=== PATIENT | female | born 2000 | race Caucasian/White ===

== ENCOUNTER 2025-01-12 03:25 | Outpatient (CLI) | payer MEDICAID, SELFPAY ==
[2025-01-12 12:02] LABS: Abs Immature Grans 0.03 10^3/uL (0.0-0.06); HCT 43.9 % (36.0-46.0); HGB 15.2 g/dL (11.2-15.7); Immature Grans % 0.3 %; MCH 30.8 pg (27.0-33.0); MCHC 34.6 % (32.0-36.0); MCV 89 fL (80-95); Platelet Count 183 10^3/uL (130-400); RBC 4.93 10^6/uL (3.93-5.22); RDW 13.0 % (11.7-14.6); RDW-SD 41.9 fL; WBC 8.71 10^3/uL (4.4-10.8)
[2025-01-12 12:21] LABS: Hemoglobin A1C 4.9 % (<5.7)
[2025-01-12 12:49] LABS: ALT 24 U/L (14-59); AST 16 U/L (15-37); Albumin 3.5 g/dL (3.4-5.0); Alkaline Phosphatase 78 U/L (46-116); Anion Gap 11.2 mmol/L (3-11); BUN 5 mg/dL (7-18); Bilirubin, Total 0.6 mg/dL (0.2-1.0); CO2 23.8 mmol/L (21.0-32.0); Calcium 9.0 mg/dL (8.5-10.1); Chloride 105 mmol/L (98-107); Estimated GFR 123.01 (mL/min/1.73m2); Glucose 84 mg/dL (74-106); Potassium 3.9 mmol/L (3.5-5.1); Sodium 140 mmol/L (136-145); TSH (W/Ref FT4) 1.58 uIU/mL (0.36-3.74); Total Protein 7.2 g/dL (6.4-8.2)
[2025-01-13 09:27] LABS: HIV-1/2 Ag & Ab Screen Negative (Negative)
[2025-01-15 11:08] LABS: Rubella IgG Ab (UVM) Positive (See Note)
[2025-01-15 11:38] LABS: Hepatitis C Ab w Rflx HCV PCR Negative (Negative)
[2025-01-15 15:45] LABS: Syphilis IgG w/Reflex Nonreactive (Nonreactive)
== END 2025-01-12 03:26 | disposition home or self-care (01) ==
PROVIDERS: Visit Provider Advanced Practice Midwife
DX: Z34.91 Encounter for supervision of normal pregnancy, unspecified, first trimester (principal)
CPT/HCPCS: 36415; 80053; 86787; 86803; 86850; 86900; 86901; 87340; 87389; 83036; 84443; 85025; 86762; 86780

== ENCOUNTER 2025-01-12 10:25 | Outpatient (REF) | payer MEDICAID, SELFPAY ==
[2025-01-12 12:12] LABS: Cannabinoids THC Positive (Negative); METHADONE URINE SCREEN Negative (Negative)
[2025-01-14 16:01] LABS: Fentanyl Scr w/Rfx Confirm Negative ng/mL (<1)
[2025-01-15 11:53] LABS: Chlamydia Result Negative (Negative); GC Result Negative (Negative)
== END 2025-01-12 10:26 | disposition home or self-care (01) ==
LOC: LBN 10:25
PROVIDERS: Visit Provider Advanced Practice Midwife
DX: Z34.91 Encounter for supervision of normal pregnancy, unspecified, first trimester (principal)
CPT/HCPCS: 80307; 80348; 87491; 87591; 87086

== ENCOUNTER 2025-01-15 03:26 | Outpatient (CLI) | payer MEDICAID, SELFPAY ==
--- NOTE | 2025-01-15 14:00 | DI.US_ITS ---
Exam(s) US OB 1ST TRIMESTER EXAM: US OB 1ST TRIMESTER CLINICAL HISTORY: viability and dates,z34.90. TECHNIQUE: First trimester obstetrical ultrasound was performed. COMPARISON: US POCUS EXAM from 12/19/2024 FINDINGS: There is an intrauterine gestational sac which contains a viable pole which exhibits heart rate of 180 bpm. motion was identified [place]-rump length measurement is 58 mm, corresponding to 12 weeks and 2 days gestational age. There is no evidence of subchorionic hemorrhage. There is a normal amount of amniotic fluid. Maternal ovaries: Left ovary measures 3 x 1.7 x 2.8 cm Right ovary not identified. There is no fluid in the cul-de-sac and adnexal regions. IMPRESSION:: Single viable intrauterine gestation which is approximately 12 weeks and 2 days gestational age by crown rump length measurement, implying ARIA of July 2811/2025 There is no evidence of subchorionic hemorrhage. There is no free fluid evident in the cul-de-sac. DATA REPOSITORY:
== END 2025-01-15 03:46 ==
LOC: DI 03:26
PROVIDERS: Visit Provider Advanced Practice Midwife
DX: Z34.92 Encounter for supervision of normal pregnancy, unspecified, second trimester (principal); E66.01 Morbid (severe) obesity due to excess calories; Z3A.12 12 weeks gestation of pregnancy
CPT/HCPCS: 76801